=== PATIENT | male | born 1995 | race Caucasian/White ===

== ENCOUNTER → 2025-08-27 15:46 | Outpatient (CLI) | payer BC, SELFPAY ==
--- NOTE | 2025-08-27 15:48 | DI.MRI.S_ITS ---
PROCEDURE: MR HEAD/BRAIN WO/W CON INDICATIONS: Recent seizure; metabolic w/u; CT neg TECHNIQUE: Noncontrast axial T1 spin echo, axial T2 fast spin echo, sagittal and axial FLAIR, axial gradient echo, axial diffusion and ADC, coronal thin-slice T2 FSE through the brain. Optional contrast, followed by axial and coronal and sagittal 3D VIBE or T1 spin echo with fat saturation sequences through the brain. COMPARISON: None. FINDINGS: Image quality: Excellent. CSF spaces: Ventricles are normal in size and shape. Basal cisterns are patent. No extra-axial fluid collections. Brain: Multiple foci of T2/FLAIR hyperintense signal within the supratentorial white matter involving the periventricular regions as well as the subcortical region in the anterior bilateral temporal lobes. No intracranial bleeds or mass effects. No abnormal intracranial enhancement. Caceres-white matter interface appears intact. Diffusion weighted images demonstrate no acute ischemic insults. Brainstem appear normal. Normal intravascular flow voids are present. The left hippocampal region is mildly decreased in size compared to the right. Skull and face: Calvarial marrow signal is normal. Orbits appear normal. Sinuses: Sinuses and mastoids are clear. IMPRESSION: Multiple foci of T2/FLAIR hyperintense signal within the supratentorial white matter, some of which demonstrates a perpendicular orientation from the ventricles. Additional FLAIR hyperintense signal within the subcortical white matter of the anterior temporal lobes bilaterally. Differential considerations include a demyelinating process versus sequela of migraines or vasculitis or other metabolic process. Recommend neurology consultation and follow-up brain MRI to assess stability. The left hippocampal region appears mildly decreased in size compared to the right. No abnormal intracranial enhancement. Dictated by: Hua Quintanilla M.D. on 08/29/2025 at 15:00 Approved by: Hua Quintanilla M.D. on 08/29/2025 at 15:07
== END ==
PROVIDERS: PCP Family Medicine; Referring Provider Family Medicine; Visit Provider Family Medicine
DX: R56.9 Unspecified convulsions (principal)
CPT/HCPCS: 70553; A9579

== ENCOUNTER → 2025-08-29 14:32 | Outpatient (CLI) | payer BC, SELFPAY ==
[2025-08-29 16:02] LABS: Add Manual Diff / Slide Review NO; Hematocrit 47.1 % (41-53); Hemoglobin 16.3 g/dL (13.5-17.5); Lymphocytes Absolute Auto 2500 /uL (1100-4500); Mean Corpuscular HGB Conc 34.6 % (30-36); Mean Corpuscular Hemoglobin 32.2 PG (26-34); Mean Corpuscular Volume 93.2 fL (80-100); Platelet Count 284 X10^3/uL (150-400)
[2025-08-29 16:35] LABS: Alanine Aminotransferase 25 IU/L (<50); Albumin 4.9 g/dL (3.5-5.0); Albumin Globulin Ratio 1.6 (1.0-2.8); Alkaline Phosphatase 70 U/L (38-126); Blood Urea Nitrogen 11 mg/dL (9-20); Calcium 10.7 mg/dL (8.4-10.2); Carbon Dioxide 29 mmol/L (22-32); Chloride 101 mmol/L (98-107); Cholesterol 140 mg/dL (140-199); Estimated Glomerular Filt Rate > 60 mL/min (>60); Globulin 3.0 g/dL (1.7-4.1); Glucose 67 mg/dL (70-99); HDL Cholesterol 57 mg/dL (40-60); HEMOLYSIS < 15 (0-50); Potassium 4.9 mmol/L (3.4-5.1); Sodium 139 mmol/L (137-145); Total Protein 7.9 g/dL (6.3-8.2); Triglycerides 139 mg/dL (35-150)
== END ==
PROVIDERS: PCP Family Medicine; Referring Provider Family Medicine; Visit Provider Family Medicine
DX: I67.850 Cerebral autosomal dominant arteriopathy with subcortical infarcts and leukoencephalopathy (principal); R56.9 Unspecified convulsions
CPT/HCPCS: 36415; 80053; 80061; 85025